=== PATIENT | female | born 1965 | race Asian ===

== ENCOUNTER 2025-02-27 17:28 | Emergency (ER) | payer MEDICAID, OTHER ==
[~2025-02-27] VITALS: Ht 149.9 cm; Wt 55.0 kg
[~2025-02-27 17:28] MED LIST: ACET-2247 PO; DOXY-354 PO
[2025-02-27 17:36] VITALS: BP 177/86; PULSE 110; RESP 16; TEMP 97.5; O2SAT 98
== END 2025-02-27 19:07 | disposition home or self-care (01) ==
LOC: EMS 17:28
DX: R42 Dizziness and giddiness (principal); Z79.899 Other long term (current) drug therapy; Z91.013 Allergy to seafood; V43.52XA Car driver injured in collision with other type car in traffic accident, initial encounter; Y93.89 Activity, other specified; Y92.410 Unspecified street and highway as the place of occurrence of the external cause; Y99.8 Other external cause status
CPT/HCPCS: 99282; Z7502